=== PATIENT | male | born 1980 | race Caucasian/White ===

== ENCOUNTER 2019-01-15 16:39 | Emergency (ER) | payer SELFPAY ==
[2019-01-15 17:03] VITALS: BP 119/72; PULSE 70; TEMP 99; BMI 29.2
[2019-01-15] MEDS ORDERED: DIPHTH,PERTUSS(ACELL),TET 0.5 ML DISP.SYRIN IM ONE (17:20)
--- NOTE | 2019-01-15 17:21 | PDOC ---
History of Present Illness - General Chief Complaint: Laceration Stated Complaint: R HAND INJURY Time Seen by Provider: 01/15/19 17:11 - History of Present Illness Initial Comments: 01/15/19 17:21 CHIEF COMPLAINT: laceration HISTORY OF PRESENT ILLNESS: 38 yo M with no PMH presents to fast track with laceration to R hand. Patient reports he was using a circular saw to build something and accidentally cut his thumb and index finger. Unknown last Tdap. No recent travel or sick contacts. PAST MEDICAL HISTORY: Denies past medical history FAMILY HISTORY: Denies SOCIAL HISTORY: Denies tobacco, alcohol, illicit drug use. SURGICAL HISTORY: Denies ALLERGIES: No known drug allergies REVIEW OF SYSTEMS General/Constitutional: Denies fever or chills. Denies weakness, weight change. HEENT: Denies change in vision. Denies ear pain or discharge. Denies sore throat. Cardiovascular: Denies chest pain or shortness of breath. Respiratory: Denies cough, wheezing, or hemoptysis. Gastrointestinal: Denies nausea, vomiting, diarrhea or constipation. Denies rectal bleeding. Genitourinary: Denies dysuria, frequency, or change in urination. Musculoskeletal: Denies joint or muscle swelling or pain. Denies neck or back pain. Skin: "My hand got caught in a circular saw." Neurologic: Denies headache, vertigo, loss of consciousness, or loss of sensation. PHYSICAL EXAM General Appearance: Well-appearing, appropriately dressed. No apparent distress , no intoxication. HEENT: EOMI, PERRLA, normal ENT inspection, normal voice, TMs normal, pharynx normal. No conjunctival pallor. No photophobia, scleral icterus. Neck: Supple. Trachea midline. No tenderness, rigidity, carotid bruit, stridor , lymphadenopathy, or thyromegaly. Respiratory/Chest: Lungs CTAB. No shortness of breath, chest tenderness, respiratory distress, accessory muscle use. No crackles, rales, rhonchi, stridor , wheezing, dullness Cardiovascular: RRR. S1, S2. No JVD, murmur, bradycardia, tachycardia. Vascular Pulses: Dorsalis-Pedis (R): 2+, Dorsalis-Pedis (L): 2+ Gastrointestinal/Abdominal: Normal bowel sounds. Abdomen soft, non-distended. No tenderness or rebound tenderness. No organomegaly, pulsatile mass, guarding , hernia, hepatomegaly, splenomegaly. Lymphatic: No adenopathy, tenderness. Musculoskeletal/Extremities: Normal inspection. FROM of all extremities, normal capillary refill. Pelvis Stable. No CVA tenderness. No tenderness to extremities, pedal edema, swelling, erythema or deformity. Integumentary: 1.5 inch jagged flap laceration to base of R thumb. 1 inch skin avulsion to distal volar aspect of R thumb. 1.5 inch jagged flap laceration to base of R index finger. 1 inch skin avulstion to distal volar aspect of R index finger. no foreign body appreciated to lacs. neurovascularly intact, cap refill intact. pulses 2+ b/l. full ROM to all fingers to R hand. Otherwise appropriate color, dry, warm. 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 Fully oriented, alert. Appropriate mood/affect. Motor strength 5/5. No appreciable EOM palsy, facial droop or sensory deficit. Past History - Past Medical History Allergies/Adverse Reactions: Allergies Allergy/AdvReac Type Severity Reaction Status Date / Time No Known Allergies Allergy Unverified 01/15/19 17:01 - Suicide/Smoking/Psychosocial Hx Smoking History: Never smoked Hx Alcohol Use: No Drug/Substance Use Hx: No *Physical Exam - Vital Signs Last Vital Signs Temp Pulse Resp BP Pulse Ox 99.0 F 70 18 119/72 100 01/15/19 17:01 01/15/19 17:01 01/15/19 17:01 01/15/19 17:01 01/15/19 17:01 Procedures - Consent Consent obtained: Verbal - Laceration/Wound Repair Right Volar Hand 1st digit Wound Length: to 2.5 cm Wound Explored: clean, no foreign body present Wound's Depth, Shape: irregular, flap, stellate Irrigated w/ Saline: Yes Betadine Prep: No Anesthesia: 1% Lidocaine Amount of Anesthetic (ccs): 6 Wound Repaired With: Sutures Suture Size/Type: 4:0 Number of Sutures: 6 Layer Closure: No Sterile Dressing Applied: Yes (xeroform, dry bulky dressing) Right Volar Hand 2nd digit Wound Length: 2.6 to 5.0 cm Wound Explored: clean, no foreign body present Wound's Depth, Shape: irregular, flap, stellate Irrigated w/ Saline: Yes Betadine Prep: No Anesthesia: 1% Lidocaine Amount of Anesthetic (ccs): 5 Wound Repaired With: Sutures Suture Size/Type: 5:0 (three ), 4:0 (one) Sterile Dressing Applied: Yes (xeroform, dry bulky dressing) Medical Decision Making - Medical Decision Making 01/15/19 18:29 38 yo M with no PMH presents to fast track with laceration to R hand. -tdap -hand x-ray x-ray negative for fracture or foreign body -suture repair performed - see procedure note post lac repair instructions/return precautions given. *DC/Admit/Observation/Transfer Diagnosis at time of Disposition: Laceration of hand Qualifiers: Encounter type: initial encounter Foreign body presence: without foreign body Laterality: right Qualified Code(s): S61.411A - Laceration without foreign body of right hand, initial encounter - Discharge Dispostion Disposition: HOME Condition at time of disposition: Stable Decision to Admit order: No - Referrals - Patient Instructions Printed Discharge Instructions: DI for Laceration Repair Additional Instructions: As discussed, please keep the sutured wounds clean and dry for the next 24-48 hours; afterwards you may wash with mild soap and water. Return in 10-14 days for suture removal. If you develop any redness, swelling, streaking, worsening pain, or swelling to your hand, or you develop fever or any other new or worsening symptoms, please return to the ER immediately. - Post Discharge Activity
== END 2019-01-15 18:43 | disposition home or self-care (01) ==
LOC: JERFT 16:39
PROC: 0HQFXZZ Repair Right Hand Skin, External Approach (ICD-10-PCS; principal; 2019-01-15)
PROC: 3E0234Z Introduction of Serum, Toxoid and Vaccine into Muscle, Percutaneous Approach (ICD-10-PCS; 2019-01-15)
DX: S61.411A Laceration without foreign body of right hand, initial encounter (principal); W29.8XXA Contact with other powered hand tools and household machinery, initial encounter; Y93.9 Activity, unspecified; Y92.9 Unspecified place or not applicable
CPT/HCPCS: 73130-TC-RT-FY; 90715; 99282-25

== ENCOUNTER 2019-01-27 18:38 | Emergency (ER) | payer SELFPAY ==
--- NOTE | 2019-01-27 18:48 | PDOC ---
Rapid Medical Evaluation Time Seen by Provider: 01/27/19 18:43 Medical Evaluation: Allergies Allergy/AdvReac Type Severity Reaction Status Date / Time No Known Allergies Allergy Unverified 01/15/19 17:01 01/27/19 18:45 38 year old male c/o right thumb laceration 2 weeks now with increased swelling and redness to right thumb PE: patient alert ox3, right thumb laceration clean dry and intact. A: right thumb injury P: patient to the ER for further management of care. Discharge Disposition - Diagnosis Finger swelling - Referrals - Patient Instructions - Post Discharge Activity
[2019-01-27 18:49] VITALS: BP 114/57; PULSE 66; TEMP 98.2; BMI 25.0
[2019-01-27] MEDS ORDERED: CEPHALEXIN MONOHYDRATE 500 MG CAPSULE (UD) PO ONE (20:01)
[2019-01-27] MEDS ORDERED: SULFAMETHOXAZOLE/TRIMETHOPRIM 800MG/160MG D.S. TABLET PO ONE (20:01)
--- NOTE | 2019-01-27 20:01 | PDOC ---
History of Present Illness - General Chief Complaint: Suture/Staple Removal(Here) Stated Complaint: STICHES REMOVE Time Seen by Provider: 01/27/19 18:43 History Source: Patient - History of Present Illness Initial Comments: 01/27/19 20:05 Chief complaint: Suture removal, wound check Abrasion 38-year-old, healthy male who had injuries to the right thumb and base of the right forefinger, 12 days ago, had negative x-ray, suturing done for a laceration when his hand was cut by a machine. Patient came today to have sutures out, concerned because that's a little swollen. No fever. GENERAL/CONSTITUTIONAL: No fever, weakness. dizziness HEAD, EYES, EARS, NOSE AND THROAT: No change in vision. No ear pain or discharge. No sore throat. CARDIOVASCULAR: No chest pain RESPIRATORY: No shortness of breath or cough GASTROINTESTINAL: No pain, nausea, vomiting, diarrhea or constipation GENITOURINARY: No dysuria MUSCULOSKELETAL: No neck or back pain SKIN: No rash, + sutures, laceration NEUROLOGIC: No headache, vertigo, loss of consciousness, or loss of sensation. GENERAL: The patient is awake, alert, and fully oriented, in no acute distress. HEAD: Normal with no signs of trauma. EYES: Pupils equal, round and reactive to light, sclera anicteric, conjunctiva clear. ENT: pharynx: no erythema, no exudate, uvula midline NECK: supple CHEST: clear, nontender, rr ABD: soft, nontender BACK: no tenderness or signs of injury EXTREMITIES: Right upper extremity Exam with sutures in place, scabbing at the areas that were sutured, minimal erythema, no gross discharge, slight bleeding, able to flex and extend, neurovascular intact. No streaking. Rest of extremities , normal range of motion, no edema. NEUROLOGICAL: Normal speech, normal gait. SKIN: Warm, Dry Past History - Past Medical History Allergies/Adverse Reactions: Allergies Allergy/AdvReac Type Severity Reaction Status Date / Time No Known Allergies Allergy Verified 01/27/19 18:45 Home Medications: Ambulatory Orders Cephalexin Monohydrate [Keflex -] 1,000 mg PO BID #28 capsule 01/27/19 Sulfamethoxazole/Trimethoprim [Bactrim Ds Tablet] 1 each PO BID #14 tablet 01/27 COPD: No - Immunization History Immunization Up to Date: Yes - Suicide/Smoking/Psychosocial Hx Smoking History: Never smoked Information on smoking cessation initiated: No Hx Alcohol Use: No Drug/Substance Use Hx: No *Physical Exam - Vital Signs Last Vital Signs Temp Pulse Resp BP Pulse Ox 98.2 F 66 17 114/57 L 96 01/27/19 18:45 01/27/19 18:45 01/27/19 18:45 01/27/19 18:45 01/27/19 18:45 Medical Decision Making - Medical Decision Making 01/27/19 20:07 Jagged lacerations to base of right thumb, right index finger that were sutured 12 days ago with minimal erythema, some scabbing and some swelling. Able to fully flex and extend, very dry thick skin. Sutures removed, scab opening to thumb, Steri-Stripped for protection over healing. Will give antibiotics, Keflex and Bactrim as there might be the beginning of small infection due to the nature of the wounds. Given referral for hand surgeon to follow-up with to monitor healing, hand function Discussed issues, findings, results, applicable medications and treatments and follow-up. All these were understood and all questions were answered *DC/Admit/Observation/Transfer Diagnosis at time of Disposition: Visit for wound check - Discharge Dispostion Disposition: HOME Condition at time of disposition: Stable - Prescriptions Prescriptions: Cephalexin Monohydrate [Keflex -] 1,000 mg PO BID #28 capsule Sulfamethoxazole/Trimethoprim [Bactrim Ds Tablet] 1 each PO BID #14 tablet - Referrals Referrals: Brenden Jonas MD [Staff Physician] - Dagoberto Sanchez MD [Staff Physician] - Abe Jason MD [Staff Physician] - - Patient Instructions Printed Discharge Instructions: DI for Laceration Repair Steri-Strips Additional Instructions: Clean with soap and water 2-3 times daily, apply bacitracin Have her reevaluated if redness, pus, fever or getting worse Take the Keflex and Bactrim as prescribed and until finished Use will fall off in several days Followup with the doctors listed or any hand surgeon of your choosing - Post Discharge Activity
[2019-01-27] MEDS ORDERED: CEPHALEXIN MONOHYDRATE 500 MG CAPSULE (UD) ONE (20:05)
[2019-01-27] MEDS ORDERED: SULFAMETHOXAZOLE/TRIMETHOPRIM 800MG/160MG D.S. TABLET ONE (20:05)
== END 2019-01-27 20:10 | disposition home or self-care (01) ==
LOC: JERFT 18:38
DX: Z48.817 Encounter for surgical aftercare following surgery on the skin and subcutaneous tissue (principal); Z48.02 Encounter for removal of sutures; L08.89 Other specified local infections of the skin and subcutaneous tissue
CPT/HCPCS: 99281-25